=== PATIENT | female | born 1970 | race Caucasian/White ===

== ENCOUNTER 2020-06-14 16:51 | Emergency (ER) | payer OTHER ==
[2020-06-14 17:49] LABS: BASOPHIL 0.5 % (0-2); EOSINOPHIL 1.4 % (0-5); HCT 40.8 % (37.0-47.0); HGB 13.4 g/dl (12.5-16.0); LYMPHOCYTE 26.7 % (15-48); MCHC 32.8 g/dL (32.0-36.0); MCV 94.4 fL (78.0-100.0); MONOCYTE 7.8 % (0-12); NEUTROPHIL 63.2 % (41-80); NRBC 0; PLT 291 K/uL (150-400); RBC 4.32 M/uL (4.20-5.40); RDW 13.4 % (11.5-14.0); WBC 8.5 K/uL (4.0-10.5)
[2020-06-14 18:04] LABS: ALBUMIN 3.2 g/dL (3.4-5.0); BILIRUBIN - TOTAL 0.3 mg/dL (0.2-1.0); BUN/CREAT RATIO (CALC) 11.6 RATIO; CREATININE 0.86 mg/dL (0.51-0.95); GLOBULIN (CALCULATION) 4.3 g/dL; POTASSIUM 4.3 mmol/L (3.5-5.1); TOTAL PROTEIN 7.5 g/dL (6.4-8.2)
[2020-06-14 18:15] LABS: BILIRUBIN NEGATIVE (NEGATIVE); BLOOD NEGATIVE Ery/uL (NEGATIVE); CLARITY CLEAR (CLEAR); COLOR YELLOW (YELLOW); GLUCOSE (U) 3+ mg/dL (NORMAL); LEUKOCYTES NEGATIVE Leu/uL (NEGATIVE); NITRITE NEGATIVE (NEGATIVE); PROTEIN NEGATIVE (NEGATIVE); SPECIFIC GRAVITY 1.015 (1.001-1.030); UROBILINOGEN 0.2 mg/dL (0.2-1.0); pH 5.5 (5.0-9.0)
== END 2020-06-14 21:00 | disposition home or self-care (01) ==
LOC: FER 16:51
PROVIDERS: Nurse Practitioner Family
DX: E11.65 Type 2 diabetes mellitus with hyperglycemia (principal); Z91.040 Latex allergy status; Z91.041 Radiographic dye allergy status
CPT/HCPCS: 36415; 36600; 80053; 81003; 82803; 85025; J7030; J7040

== ENCOUNTER 2020-10-13 07:44 | Emergency (ER) | payer OTHER ==
[2020-10-13 09:34] LABS: BASOPHIL 0.5 % (0-2); EOSINOPHIL 3.8 % (0-5); HGB 13.4 g/dl (12.5-16.0); LYMPHOCYTE 26.4 % (15-48); MCH 29.3 pg (25.0-31.0); MCHC 31.9 g/dL (32.0-36.0); MCV 91.9 fL (78.0-100.0); MONOCYTE 5.9 % (0-12); MPV 11.9 fL (6.0-9.5); NRBC 0; PLT 332 K/uL (150-400); RBC 4.57 M/uL (4.20-5.40); RDW 13.2 % (11.5-14.0); WBC 9.2 K/uL (4.0-10.5)
[2020-10-13 09:56] LABS: ALBUMIN 3.4 g/dL (3.4-5.0); BILIRUBIN - TOTAL 0.2 mg/dL (0.2-1.0); BUN/CREAT RATIO (CALC) 13.8 RATIO; C-REACTIVE PROTEIN 5.4 mg/dL (<=0.90); CREATININE 0.8 mg/dL (0.51-0.95); GLOBULIN (CALCULATION) 4.7 g/dL; MAGNESIUM 2.2 mg/dL (1.8-2.4); POTASSIUM 4.8 mmol/L (3.5-5.1); TOTAL PROTEIN 8.1 g/dL (6.4-8.2)
[2020-10-13 10:01] LABS: LACTIC ACID 1.3 mmol/L (0.4-1.9)
[2020-10-13 10:14] LABS: BILIRUBIN NEGATIVE (NEGATIVE); BLOOD 1+ Ery/uL (NEGATIVE); CLARITY CLEAR (CLEAR); COLOR YELLOW (YELLOW); GLUCOSE (U) 3+ mg/dL (NORMAL); LEUKOCYTES NEGATIVE Leu/uL (NEGATIVE); NITRITE NEGATIVE (NEGATIVE); PROTEIN NEGATIVE (NEGATIVE); UROBILINOGEN 0.2 mg/dL (0.2-1.0)
[2020-10-13 10:24] LABS: URINARY WBC RARE
[2020-10-13] MEDS ORDERED: VIBRAMYCIN100 MG PO (11:13)
[2020-10-13] MEDS ORDERED: VENTOLIN HFA18 GM INH (11:13)
[2020-10-13] MEDS ORDERED: MUCINEX600 MG PO (11:13)
== END 2020-10-13 11:57 | disposition home or self-care (01) ==
LOC: FER 07:44
PROVIDERS: Emergency Medicine
DX: J18.9 Pneumonia, unspecified organism (principal); E11.65 Type 2 diabetes mellitus with hyperglycemia
CPT/HCPCS: 36415; 71046; 80053; 81001; 83605; 83735; 84145; 85025; 86140; J7030